=== PATIENT | male | born 1985 | race Caucasian/White ===

== ENCOUNTER 2021-05-22 05:26 | Emergency (ER) | payer BC, OTHER ==
[~2021-05-22] VITALS: Ht 182 cm; Wt 217.0 kg
--- NOTE | 2021-05-22 05:50 | ED Chest Pain ---
General Chief Complaint: Cardiac/General Problems Stated Complaint: CHEST PAIN Source: patient Exam Limitations: no limitations History of Present Illness Date Seen by Provider: May 22, 2021 Time Seen by Provider: 05:29 Initial Comments 35-year-old male with past medical history of hypertension, anxiety, depression coming in due to chest pain. Started yesterday, center of his chest, dull, and has been constant since then. Movement does not seem to change the pain. Laying down does not seem to change the pain. It is not worse with eating. Has never really had pain like this before. Denies any prior history of DVT or PE. Does have a strong family history of heart disease. He has been on phentermine for the past 2 months to lose weight and has lost 40 pounds. The goal with his physician is to be on this for 6 months in total. He does follow with his physician at least monthly. Is otherwise denying any cough, shortness of breath, fever, nausea, vomiting, diarrhea, weakness, numbness, abdominal pain, rash, or any other concerns. Allergies and Home Medications Allergies Coded Allergies: No Known Drug Allergies (Unverified , 05/22/21) Patient Home Medication List Home Medication List Reviewed: Yes Review of Systems Review of Systems Constitutional: No chills, No fever EENTM: No Blurred Vision Respiratory: Denies Cough, Denies Shortness of Air Cardiovascular: Chest Pain Gastrointestinal: Denies Abdominal Pain, Denies Diarrhea, Denies Nausea, Denies Vomiting Genitourinary: Denies Burning Musculoskeletal: no symptoms reported Skin: no symptoms reported Psychiatric/Neurological: No Symptoms Reported Endocrine: No Symptoms Reported Hematologic/Lymphatic: No Symptoms Reported All Other Systems Reviewed Negative Unless Noted: Yes Past Piuhbco-Iefdhs-Wpewps Hx Patient Social History Tobacco Use?: No Substance use?: No Alcohol Use?: Yes Alcohol Frequency: Once in a while Past Medical History Surgeries: No Physical Exam Vital Signs Vital Signs - First Documented 05/22/21 05:30 Temp 36.0 Pulse 63 Resp 20 B/P (MAP) 139/77 (97) Pulse Ox 97 O2 Delivery Room Air Capillary Refill : Height, Weight, BMI Height: '" Weight: lbs. oz. kg; BMI Method: General Appearance: No Apparent Distress, WD/WN HEENT: PERRL/EOMI, Normal ENT Inspection, Pharynx Normal Neck: Full Range of Motion, Normal Inspection, Non Tender, Supple Respiratory: Chest Non Tender, Lungs Clear, Normal Breath Sounds, No Accessory Muscle Use, No Respiratory Distress Cardiovascular: Regular Rate, Rhythm, No Edema, Normal Peripheral Pulses Gastrointestinal: Normal Bowel Sounds, Non Tender, Soft; No Distended, No Guarding Extremity: Normal Capillary Refill, Normal Inspection, Normal Range of Motion, Non Tender, No Calf Tenderness, No Pedal Edema Neurologic/Psychiatric: Alert, No Motor/Sensory Deficits, Normal Mood/Affect Skin: Normal Color, Warm/Dry Lymphatic: No Adenopathy Progress/Results/Core Measures Results/Orders Lab Results Laboratory Tests Test 05/22/21 05:45 Range/Units White Blood Count 6.3 4.3-11.0 10^3/uL Red Blood Count 5.08 4.30-5.52 10^6/uL Hemoglobin 13.8 13.3-17.7 g/dL Hematocrit 42 40-54 % Mean Corpuscular Volume 83 80-99 fL Mean Corpuscular Hemoglobin 27 25-34 pg Mean Corpuscular Hemoglobin Concent 33 32-36 g/dL Red Cell Distribution Width 15.4 H 10.0-14.5 % Platelet Count 198 130-400 10^3/uL Mean Platelet Volume 9.9 9.0-12.2 fL Immature Granulocyte % (Auto) 1 % Neutrophils (%) (Auto) 56 42-75 % Lymphocytes (%) (Auto) 23 12-44 % Monocytes (%) (Auto) 18 H 0-12 % Eosinophils (%) (Auto) 2 0-10 % Basophils (%) (Auto) 1 0-10 % Neutrophils # (Auto) 3.6 1.8-7.8 X 10^3 Lymphocytes # (Auto) 1.4 1.0-4.0 X 10^3 Monocytes # (Auto) 1.1 H 0.0-1.0 X 10^3 Eosinophils # (Auto) 0.1 0.0-0.3 10^3/uL Basophils # (Auto) 0.1 0.0-0.1 10^3/uL Immature Granulocyte # (Auto) 0.1 0.0-0.1 10^3/uL Prothrombin Time 13.5 12.2-14.7 SEC INR Comment 1.0 0.8-1.4 Activated Partial Thromboplast Time 29 24-35 SEC Sodium Level 135 135-145 MMOL/L Potassium Level 3.6 3.6-5.0 MMOL/L Chloride Level 99 98-107 MMOL/L Carbon Dioxide Level 24 21-32 MMOL/L Anion Gap 12 5-14 MMOL/L Blood Urea Nitrogen 19 H 7-18 MG/DL Creatinine 0.78 0.60-1.30 MG/DL Estimat Glomerular Filtration Rate 114 BUN/Creatinine Ratio 24 Glucose Level 100 70-105 MG/DL Calcium Level 8.8 8.5-10.1 MG/DL Corrected Calcium 9.0 8.5-10.1 MG/DL Magnesium Level 2.0 1.6-2.4 MG/DL Total Bilirubin 0.3 0.1-1.0 MG/DL Aspartate Amino Transf (AST/SGOT) 23 5-34 U/L Alanine Aminotransferase (ALT/SGPT) 31 0-55 U/L Alkaline Phosphatase 90 40-136 U/L Troponin I < 0.30 <0.30 NG/ML Total Protein 7.0 6.4-8.2 GM/DL Albumin 3.8 3.2-4.5 GM/DL My Orders Orders - CAITIE QUISPE MD Lidocaine 2% Viscous 15 Ml (Xylocaine Vi (05/22/21 06:00) Antacid Suspension (Mylanta Suspension (05/22/21 06:00) Ed Iv/Invasive Line Start (05/22/21 05:50) Cbc With Automated Diff (05/22/21 05:50) Magnesium (05/22/21 05:50) Chest 1 View Ap/Pa Only (05/22/21 05:50) Ekg Tracing (05/22/21 05:50) Comprehensive Metabolic Panel (05/22/21 05:50) Protime With Inr (05/22/21 05:50) Partial Thromboplastin Time (05/22/21 05:50) Monitor-Rhythm Ecg Trace Only (05/22/21 05:50) Aspirin Chewable Tablet (Baby Aspirin Ch (05/22/21 06:00) Troponin I Fs (05/22/21 05:50) Manual Differential (05/22/21 05:45) Medications Given in ED Current Medications Medications Dose Ordered Sig/Juan M Route Start Time Stop Time Status Last Admin Dose Admin Al Hydrox/Mg Hydrox/Simethicone 30 ml ONCE ONCE PO 05/22/21 06:00 05/22/21 06:01 DC 05/22/21 05:57 30 ML Aspirin 324 mg ONCE ONCE PO 05/22/21 06:00 05/22/21 06:01 DC 05/22/21 05:55 324 MG Lidocaine HCl 15 ml ONCE ONCE PO 05/22/21 06:00 05/22/21 06:01 DC 05/22/21 05:57 15 ML Vital Signs/I&O 05/22/21 05:30 Temp 36.0 Pulse 63 Resp 20 B/P (MAP) 139/77 (97) Pulse Ox 97 O2 Delivery Room Air Progress Progress Note : Progress Note 35-year-old male with above history coming in due to chest pain. ABCs were intact and vitals were stable on presentation. Differential for the chest pain includes but not limited to ACS, PE, pneumothorax, pneumonia, pericardial effusion, aortic dissection, esophageal rupture, or some other etiology. An IV was started with basic labs as well as cardiac biomarkers ordered. EKG and chest xray also ordered. He was given full dose aspirin given his strong family history of heart disease. EKG without any ischemic changes on my interpretation. Chest xray on my interpretation with no obvious infiltrate, no pleural effusion, normal cardiac silhouette, and no free air under the diaphragm. Labs essentially unremarkable including negative troponin. The patient is low risk for a PE per Tiro Criteria and is PERC negative. Highly unlikely they have a PE at this time. Overall I believe the patient is stable with close outpatient follow-up with cardiology. I recommended he hold his phentermine until discussing with the primary doctor that is prescribing it and they can have a conversation about the risk and benefits of weight loss versus strain on his heart. He was then discharged home in stable condition with strict return precautions. Initial ECG Impression Date: May 22, 2021 Initial ECG Impression Time: 05:29 Initial ECG Rate: 68 Initial ECG Rhythm: Normal Sinus Comment Narrow QRS, normal axis, no significant ST changes, T wave flattening in V2 and lead III with no prior EKG to compare to Diagnostic Imaging Diagonstic Imaging: Xray Plain Films/CT/US/NM/MRI: chest Comments [facility]. [place], [place] NAME: PRINCEANDREAS [facility] REC#: [id number] PT STATUS: REG ER : 1985 PHYSICIAN: CAITIE QUISPE MD ADMIT DATE: 05/22/21/ER FS Draft Date of Exam:05/22/21 CHEST 1 VIEW AP/PA ONLY HISTORY: Chest pain COMPARISON: None TECHNIQUE: Frontal view of the chest FINDINGS: Lung volumes are low. No consolidation is seen. There is no significant pleural effusion or pneumothorax seen. The cardiac silhouette is stable in size. IMPRESSION: 1. Low lung volumes with no acute pulmonary abnormality seen. Dictated on workstation # [id number] Dict: 05/22/2110 Trans: 05/22/21611 [facility] [id number] Interpreted by: WADE ARCHULETA MD Electronically signed by: Departure Impression Primary Impression: Chest pain Qualified Codes: R07.9 - Chest pain, unspecified Disposition: 01 HOME, SELF-CARE Condition: Stable Departure-Patient Inst. Referrals: CELY LEE MD FACP FAC CCDS NO,LOCAL PHYSICIAN (PCP) Primary Care Physician Patient Instructions: Chest Pain (DC) Add. Discharge Instructions: You were seen in the emergency department for chest pain. Your labs do not like you have had a heart attack as of right now. However, you are very high risk with your family history. I would like you to call the industrial paramedic (Dr. Lee's number is in this paperwork, he is in [place]) and schedule follow-up because they may want to a stress test. The phentermine you are on does put a lot of stress on your heart, but at this time the benefits may outweigh the risk, as losing weight would be beneficial for your heart. Please discuss with your primary doctor that you are being prescribed the phentermine from that you have been having chest pain and determine between yourselves if you would still like to take the phentermine. If you continue to have chest pain that is worsening or you have any other concerns then please come back to the ER Given that you are a little bit high risk, I would recommend you take a baby aspirin every day until following up with cardiology. Work/School Note: Work Release Form Date Seen in the Emergency Department: May 22, 2021 Return to Work: May 23, 2021 Restrictions: No Restrictions CAITIE QUISPE MD May 22, 2021 05:50
[2021-05-22] MEDS ORDERED: ANTACID SUSP 30 ML UDC (MYLANTA) PO ONE (06:00)
[2021-05-22] MEDS ORDERED: LIDOCAINE 2% VISCOUS 15 ML UDC PO ONE (06:00)
[2021-05-22] MEDS ORDERED: ASPIRIN 81 MG CHEW (CHILDREN'S ASA) PO ONE (06:00)
[2021-05-22 06:04] LABS: PROTHROMBIN TIME PATIENT 13.5 SEC (12.2-14.7)
[2021-05-22 06:08] LABS: HEMATOCRIT 42 % (40-54); HEMOGLOBIN 13.8 g/dL (13.3-17.7); MEAN CORPUSCULAR HEMOGLOBIN 27 pg (25-34); MEAN CORPUSCULAR VOLUME 83 fL (80-99); WHITE BLOOD COUNT 6.3 10^3/uL (4.3-11.0)
[2021-05-22 06:09] LABS: BASOPHILS # (AUTO) 0.1 10^3/uL (0.0-0.1); BASOPHILS % (AUTO) 1 % (0-10); EOSINOPHILS # (AUTO) 0.1 10^3/uL (0.0-0.3); EOSINOPHILS % (AUTO) 2 % (0-10); LYMPHOCYTES # (AUTO) 1.4 X 10^3 (1.0-4.0); LYMPHOCYTES % (AUTO) 23 % (12-44); MEAN CORPUSCULAR HGB CONC 33 g/dL (32-36); MEAN PLATELET VOLUME 9.9 fL (9.0-12.2); MONOCYTES # (AUTO) 1.1 X 10^3 (0.0-1.0); MONOCYTES % (AUTO) 18 % (0-12); NEUTROPHILS # (AUTO) 3.6 X 10^3 (1.8-7.8); NEUTROPHILS % (AUTO) 56 % (42-75); PLATELET COUNT 198 10^3/uL (130-400)
--- NOTE | 2021-05-22 06:12 | Diagnostic Imaging Report ---
HISTORY: Chest pain COMPARISON: None TECHNIQUE: Frontal view of the chest FINDINGS: Lung volumes are low. No consolidation is seen. There is no significant pleural effusion or pneumothorax seen. The cardiac silhouette is stable in size. IMPRESSION: 1. Low lung volumes with no acute pulmonary abnormality seen. Dictated by: Dictated on workstation # [id number]
[2021-05-22 06:20] LABS: ALBUMIN 3.8 GM/DL (3.2-4.5); BILIRUBIN,TOTAL 0.3 MG/DL (0.1-1.0); CALCIUM 8.8 MG/DL (8.5-10.1); CREATININE SERUM 0.78 MG/DL (0.60-1.30); POTASSIUM 3.6 MMOL/L (3.6-5.0)
[2021-05-22 06:30] LABS: EOSINOPHILS % (MANUAL) 1 %; LYMPHOCYTES % (MANUAL) 26 %; MONOCYTES % (MANUAL) 10 %; NEUTROPHILS % (MANUAL) 59 %
[2021-05-22 06:31] LABS: PLATELET ESTIMATE NORM; RBC MORPH NORM; REACTIVE LYMPHOCYTES 4 %
[2021-05-22 06:35] VITALS: BP 132/74
== END 2021-05-22 06:35 | disposition home or self-care (01) ==
LOC: ER FS 05:31
DX: R07.9 Chest pain, unspecified (principal); I10 Essential (primary) hypertension
CPT/HCPCS: 36415; 71045; 80053; 83735; 84484; 85007; 85027; 85610; 85730; 93005

== ENCOUNTER 2022-02-20 16:11 | Observation (INO) | payer BC ==
[~2022-02-20] VITALS: Ht 182.9 cm; Wt 226.8 kg
[2022-02-20 16:39] LABS: BASOPHILS % (AUTO) 0 % (0-10); EOSINOPHILS # (AUTO) 0.3 10^3/uL (0.0-0.3); EOSINOPHILS % (AUTO) 3 % (0-10); HEMATOCRIT 41 % (40-54); HEMOGLOBIN 13.5 g/dL (13.3-17.7); LYMPHOCYTES % (AUTO) 20 % (12-44); MEAN CORPUSCULAR HEMOGLOBIN 28 pg (25-34); MEAN CORPUSCULAR HGB CONC 33 g/dL (32-36); MEAN CORPUSCULAR VOLUME 83 fL (80-99); MEAN PLATELET VOLUME 9.8 fL (9.0-12.2); MONOCYTES # (AUTO) 0.8 10^3/uL (0.0-1.0); MONOCYTES % (AUTO) 8 % (0-12); NEUTROPHILS % (AUTO) 68 % (42-75); PLATELET COUNT 205 10^3/uL (130-400); WHITE BLOOD COUNT 10.2 10^3/uL (4.3-11.0)
--- NOTE | 2022-02-20 16:47 | Diagnostic Imaging Report ---
EXAMINATION: Chest 1 view HISTORY: Chest pain COMPARISON: 05/22/2021. FINDINGS: Heart size and pulmonary vasculature are normal. Low lung volumes without consolidation, pleural effusion, or pneumothorax. The osseous structures are intact. IMPRESSION: 1. No acute radiographic abnormality in the chest. Dictated by: Dictated on workstation # [id number]
--- NOTE | 2022-02-20 16:48 | ED Cardiac General ---
History of Present Illness General Chief Complaint: Chest Pain Stated Complaint: CP Source: patient Exam Limitations: no limitations History of Present Illness Date Seen by Provider: Feb 20, 2022 Time Seen by Provider: 16:25 Initial Comments Patient is a 36 yo male who presents with intermittent substernal chest pain radiating R shoulder who presents for the past 2 days. Symptoms occur at rest or at night and last 15 to 20 minutes. Patient is unable to reproduce symptoms with exertion, deep breathing or arm movement. Denies nausea, shortness of breath sweats abdominal pain or other cardiac equivalent. Patient is a non- smoker but has history of high blood pressure and strong family history of cor onary disease. Patient's brother of heart attack at age 42 and mother of heart disease under the age of 60. He has 1 prior episode and was evaluated in the emergency department approximately 1 year ago for chest pain, which was deemed to be not heart related. The patient has not had any outpatient cardiac testing. He does report increased stress due to financial responsibilities related to an ongoing personal project. 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 Allergies and Home Medications Allergies Coded Allergies: No Known Drug Allergies (Unverified , 05/22/21) Patient Home Medication List Home Medication List Reviewed: Yes Review of Systems Review of Systems Constitutional: see HPI EENTM: See HPI Respiratory: See HPI Cardiovascular: See HPI Gastrointestinal: See HPI Genitourinary: See HPI Musculoskeletal: see HPI Skin: see HPI Psychiatric/Neurological: See HPI Endocrine: See HPI Hematologic/Lymphatic: See HPI All Other Systems Reviewed Negative Unless Noted: No Past Vttiyil-Klrbxv-Bufkgw Hx Patient Social History Tobacco Use?: No Use of E-Cig and/or Vaping dev: No Substance use?: No Alcohol Use?: No Pt feels they are or have been: No Immunizations Up To Date First/Initial COVID19 Vaccinat: denies Past Medical History Surgeries: No Physical Exam Vital Signs Vital Signs - First Documented 02/20/22 16:20 Temp 36.2 Pulse 79 Resp 16 B/P (MAP) 147/76 (99) Pulse Ox 95 Capillary Refill : Less Than 3 Seconds Height, Weight, BMI Height: '" Weight: lbs. oz. kg; 65.00 BMI Method: General Appearance: No Apparent Distress, WD/WN HEENT: PERRL/EOMI Neck: Non Tender Respiratory: Lungs Clear Cardiovascular: Regular Rate, Rhythm Gastrointestinal: Non Tender, Soft Neurologic/Psychiatric: Alert, Oriented x3 Focused Exam Sepsis Stage: Ruled Out Progress/Results/Core Measures Results/Orders Lab Results Laboratory Tests Test 02/20/22 16:25 Range/Units White Blood Count 10.2 4.3-11.0 10^3/uL Red Blood Count 4.90 4.30-5.52 10^6/uL Hemoglobin 13.5 13.3-17.7 g/dL Hematocrit 41 40-54 % Mean Corpuscular Volume 83 80-99 fL Mean Corpuscular Hemoglobin 28 25-34 pg Mean Corpuscular Hemoglobin Concent 33 32-36 g/dL Red Cell Distribution Width 15.1 H 10.0-14.5 % Platelet Count 205 130-400 10^3/uL Mean Platelet Volume 9.8 9.0-12.2 fL Immature Granulocyte % (Auto) 1 % Neutrophils (%) (Auto) 68 42-75 % Lymphocytes (%) (Auto) 20 12-44 % Monocytes (%) (Auto) 8 0-12 % Eosinophils (%) (Auto) 3 0-10 % Basophils (%) (Auto) 0 0-10 % Neutrophils # (Auto) 7.0 1.8-7.8 10^3/uL Lymphocytes # (Auto) 2.0 1.0-4.0 10^3/uL Monocytes # (Auto) 0.8 0.0-1.0 10^3/uL Eosinophils # (Auto) 0.3 0.0-0.3 10^3/uL Basophils # (Auto) 0.0 0.0-0.1 10^3/uL Immature Granulocyte # (Auto) 0.1 0.0-0.1 10^3/uL Sodium Level 140 135-145 MMOL/L Potassium Level 3.5 L 3.6-5.0 MMOL/L Chloride Level 103 98-107 MMOL/L Carbon Dioxide Level 26 21-32 MMOL/L Anion Gap 11 5-14 MMOL/L Blood Urea Nitrogen 19 H 7-18 MG/DL Creatinine 0.81 0.60-1.30 MG/DL Estimat Glomerular Filtration Rate 118 BUN/Creatinine Ratio 23 Glucose Level 100 70-105 MG/DL Calcium Level 9.3 8.5-10.1 MG/DL Corrected Calcium 9.1 8.5-10.1 MG/DL Total Bilirubin 0.3 0.1-1.0 MG/DL Aspartate Amino Transf (AST/SGOT) 19 5-34 U/L Alanine Aminotransferase (ALT/SGPT) 25 0-55 U/L Alkaline Phosphatase 78 40-136 U/L Troponin I < 0.30 <0.30 NG/ML Total Protein 7.1 6.4-8.2 GM/DL Albumin 4.2 3.2-4.5 GM/DL My Orders Orders - PEGGY SILVERIO DO Cbc With Automated Diff (02/20/22 16:31) Comprehensive Metabolic Panel (02/20/22 16:31) Troponin I Fs (02/20/22 16:31) Chest 1 View Ap/Pa Only (02/20/22 16:31) Ekg Tracing (02/20/22 16:31) Vital Signs/I&O 02/20/22 16:20 Temp 36.2 Pulse 79 Resp 16 B/P (MAP) 147/76 (99) Pulse Ox 95 Departure Communication (Admissions) EKG: nsr, no acute ST T wave changes. CXR: NAD Patient with atypical chest pain with moderate risk factors. EKG and trop are negative. He verbalizes understanding. Given patient's family hx it is highly recommended that the patient have cardiac chest pain. Risk vs benefits discussed in details. Patient declines admission and requests dc home. Impression Primary Impression: Chest pain Disposition: 01 HOME, SELF-CARE Condition: Stable Departure-Patient Inst. Decision time for Depature: 18:10 Referrals: MARY BLOOD MD (PCP) Primary Care Physician ATYO WOODS APRN (Family) Primary Care Physician Patient Instructions: Chest Pain Add. Discharge Instructions: You were evaluated in the emergency department for chest pain. EKG lab and imaging studies were performed and are nondiagnostic. The exact cause of your symptoms has not been determined but given your family history it is highly advisable that you obtain a cardiac stress testing soon as possible. Please contact your PCP and arrange for outpatient cardiac testing. In the meantime if you change your mind regarding hospital admission or if he develop new or concerning symptoms, return to the emergency department. All discharge instructions reviewed with patient and/or family. Voiced understanding. PEGGY SILVERIO DO Feb 20, 2022 16:48
[2022-02-20 17:51] LABS: ALANINE AMINOTRANSFERASE 25 U/L (0-55); ALKALINE PHOSPHATASE 78 U/L (40-136); BILIRUBIN,TOTAL 0.3 MG/DL (0.1-1.0); BUN/CREATININE RATIO 23; CALCIUM 9.3 MG/DL (8.5-10.1); CARBON DIOXIDE 26 MMOL/L (21-32); CHLORIDE 103 MMOL/L (98-107); CREATININE SERUM 0.81 MG/DL (0.60-1.30); GFR ESTIMATED 118; GLUCOSE 100 MG/DL (70-105); POTASSIUM 3.5 MMOL/L (3.6-5.0); SODIUM 140 MMOL/L (135-145); TOTAL PROTEIN 7.1 GM/DL (6.4-8.2)
[2022-02-20 17:52] LABS: ALBUMIN 4.2 GM/DL (3.2-4.5)
[2022-02-20] MEDS ORDERED: ASPIRIN 81 MG CHEW (CHILDREN'S ASA) PO ONE (19:00)
[2022-02-20] MEDS ORDERED: NITROGLYCERIN 2% OINT 1 GM UNIT DOSE PACKET TOP ONE (19:00)
[2022-02-20] MEDS ORDERED: meTOproloL SUCCINATE 50 MG (TOPROL XL) TAB PO SCH (19:00)
[2022-02-20] MEDS ORDERED: ENOXAPARIN 40 MG/0.4 ML (LOVENOX) SYR SQ SCH (19:00)
[2022-02-20 21:15] VITALS: BP 110/64
[2022-02-20] MEDS ORDERED: diphenhydrAMINE 25 MG TAB (BENADRYL) PO PRN (21:15)
[2022-02-20] MEDS ORDERED: ANTACID SUSP 30 ML UDC (MYLANTA) PO PRN (21:15)
[2022-02-20] MEDS ORDERED: diphenhydrAMINE 50 MG/ML INJ (BENADRYL) IVP PRN (21:15)
[2022-02-20] MEDS ORDERED: BISACODYL 10 MG SUPP (DULCOLAX) PR PRN (21:15)
[2022-02-20] MEDS ORDERED: ACETAMINOPHEN 325 MG TABLET PO PRN (21:15)
[2022-02-20] MEDS ORDERED: MELATONIN 3 MG TABLET PO PRN (21:15)
[2022-02-20] MEDS ORDERED: polyethylene glycoL POWDER 17 GM (MIRALAX) PACK PO PRN (21:15)
[2022-02-20] MEDS ORDERED: ONDANSETRON 4 MG/2 ML (SDV) Z0FRAN IV PRN (21:15)
[2022-02-20] MEDS ORDERED: ONDANSETRON 4 MG (ZOFRAN) ORAL DISSOLVE TAB PO PRN (21:15)
[2022-02-21 00:07] VITALS: BP 115/74
[2022-02-21 04:14] VITALS: BP 112/63
[2022-02-21 07:50] VITALS: BP 110/75
--- NOTE | 2022-02-21 08:30 | Consultation-Cardiology ---
HPI-Cardiology Cardiology Consultation: Date of Consultation 02/21/22 Time Seen by a Provider: 08:10 Date of Admission 02-20-22 Attending Physician Chase Veliz MD Admitting Physician Admitting Physician: Yodit Portillo MD Attending Physician: Yodit Portillo MD Consulting Physician Naseem Lee MD HPI: Chief Complaint: Chest pain Mr. Linares is a 36 yr old male admitted to 415 from the [facility] ED with c/o CP. He reports on Friday night when he was getting ready to go to bed he developed mid-sternal chest pressure which radiated to his right shoulder. He describes the right shoulder pain as a cramping, burning sensation. He reports the discomfort would come and go in intensity. He states it lasted for approx 30 minutes. He denies any n/v or diaphoresis. No c/o dyspnea. He reports he went to work on Friday and the pressure in his chest returned with right arm pain that would come and go all day long while he was at work. He reports it lasted for only a few minutes at a time. He reports the discomfort was not in relation to any activity and would come on even at rest. He states he continued to have the same symptoms on Friday prompting him to come to the ED. He reports he has not had any discomfort over night or this morning. He continues to deny any other assoc symptoms. His PCP is ROHIT Medina at Dr. Yadav office in [facility]. He reports he was recently started on a new "weight loss" medication last week. He has chronic bilat LE swelling which is least in the morning and worse at the end of the day. He reports he has sleep apnea and has been compliant with his CPAP. He is currently pain free. Review of Systems-Cardiology Review of Systems Constitutional: No chills, No fever, No lightheadedness, No malaise Eyes: No vision change Ears/Nose/Throat: No epistaxis, No recent hearing loss Respiratory: As described under HPI Cardiovascular: As described under HPI Genitourinary: No hematuria Musculoskeletal: no symptoms reported Skin: No rash on exposed areas, No ulcerations on exposed areas Psychiatric/Neurological: anxiety, depression; No seizure, No focal weakness, No syncope Hematologic: No bleeding abnormalities All Other Systems Reviewed Negative Unless Noted: No UQR-Aybrvz-Tlvwey Hx Patient Social History Smoking Status: Never a Smoker Have you traveled recently?: No Alcohol Use?: Yes Pt feels they are or have been: No Past Medical History PMH As described under Assessment. Family Medical History Family Medical History: He reports his mother has a h/o CAD, VA, stenting. She was dx with CAD in her early 50's. His father has CHF. He has a brother who passed from an VA at age 42. He has an uncle who passed from an VA at age 32. Allergies and Home Medications Allergies Coded Allergies: No Known Drug Allergies (Unverified , 05/22/21) Patient Home Medication List Allopurinol (Allopurinol) 300 Mg Tablet, 300 MG PO DAILY, (Reported) Entered as Reported by: CHARLIE WILSON on 02/21/221104 Last Action: Reviewed Aspirin (Children's Aspirin) 81 Mg Tab.chew, 81 MG PO DAILY Prescribed by: ANJU TUTTLE on 02/21/22 1341 Citalopram Hydrobromide (Citalopram HBr) 20 Mg Tablet, 20 MG PO DAILY, (R eported) Entered as Reported by: CHARLIE WILSON on 02/21/221104 Last Action: Reviewed Cyclobenzaprine HCl (Cyclobenzaprine HCl) 5 Mg Tablet, 5 MG PO TID PRN for MUSCLE SPASMS, (Reported) Entered as Reported by: CHARLIE WILSON on 02/21/221104 Last Action: Reviewed Ibuprofen (Ibuprofen) 200 Mg Tablet, 800 MG PO Q8H PRN for PAIN-MILD (1-4), (Reported) Entered as Reported by: CHARLIE WILSON on 02/21/221104 Last Action: Reviewed Metoprolol Succinate (Metoprolol Succinate) 50 Mg Tab.er.24h, 50 MG PO ONCE Prescribed by: ANJU TUTTLE on 02/21/22 1341 Naltrexone HCl/Bupropion HCl (Contrave ER 8-90 mg Tablet) 8 Mg-90 Mg Tablet.er, 1 EACH PO BID, (Reported) Entered as Reported by: CHARLIE WILSON on 02/21/221104 Last Action: Reviewed Physical Exam-Cardiology Physical Exam Vital Signs/I&O Capillary Refill : Less Than 3 Seconds Constitutional: AAO x 3, well-developed, well-nourished HEENT: PERRL, hearing is well preserved, oral hygience is good Neck: No carotid bruit; carotid pulses are 2 + bilaterally Respiratory: No accessory muscle use, No respiratory distress; chest expansion is symmetric, chest is bilaterally symmetric, other (good air entry) Cardiovascular: regular rate-rhythm; No JVD; S1 and S2 Gastrointestinal: No tender; soft, round, audible bowel sounds Extremities: no lower extremity edema bilateral Neurologic/Psychiatric: grossly intact (moves all extremities) Skin: No rash on exposed areas, No ulcerations on exposed areas Data Review Labs Radiology NAME: ANDREAS LINARES [facility] REC#: [id number] PT STATUS: REG ER : 1985 PHYSICIAN: PEGGY SILVERIO DO ADMIT DATE: 02/20/22/ER FS Signed Date of Exam:02/20/22 CHEST 1 VIEW AP/PA ONLY EXAMINATION: Chest 1 view HISTORY: Chest pain COMPARISON: 05/22/2021. FINDINGS: Heart size and pulmonary vasculature are normal. Low lung volumes without consolidation, pleural effusion, or pneumothorax. The osseous structures are intact. IMPRESSION: 1. No acute radiographic abnormality in the chest. Dictated by: Dictated on workstation # [id number] Dict: 02/20/22 1643 Trans: 02/20/22 1645 [id number] Interpreted by: ESME BLANCAS DO Electronically signed by: ESME BLANCAS DO 02/20/22 1645 ECG Impression ECG Initial ECG Rhythm: S.Nate A/P-Cardiology Assessment/Admission Diagnosis Chest pain - undetermined etiology - no evidence of ACS HTN Morbidly obese FIDEL - CPAP tx Anxiety/depression Lower extremity swelling - likely secondary to venous insufficiency Hypokalemia - likely secondary to chronic diuretic tx (HCTZ) Family h/o CAD - Mother, father, brother Discussion and Recomendations Chest pain of undetermined etiology - no evidence of ACS, but has symptoms suggestive of stable/unstable angina - consider cardiac cath - Echocardiogram today to eval structure and function HTN - continue BB Hypokalemia - likely secondary to chronic diuretic use - stop HCTZ - replace electrolytes Advised efforts at weight loss - reports he is taking Concerta Monitor lab closely Replace electrolytes as indicated Further recs will be based on his hospital course We would like to thank medical services for this consult Clinical Quality Measures AMI/AHF: ASA po Prior to arrival: ANJU Casanova Feb 21, 2022 08:30
[2022-02-21] MEDS ORDERED: ENOXAPARIN 60 MG/0.6 ML (LOVENOX) SYR SQ SCH (09:00)
[2022-02-21] MEDS ORDERED: KCL 20 MEQ TAB (K-DUR) PO NR (09:00)
[2022-02-21] MEDS ORDERED: DOCUSATE SODIUM 100 MG (COLACE) CAP PO SCH (09:00)
[2022-02-21] MEDS ORDERED: ASPIRIN 81 MG CHEW (CHILDREN'S ASA) PO SCH (09:00)
[2022-02-21] MEDS ORDERED: CLOPIDOGREL 75 MG (PLAVIX) TABLET PO SCH (09:00)
[2022-02-21] MEDS ORDERED: ALLO300T2 PO (11:05)
[2022-02-21] MEDS ORDERED: IBUP-2473 PO (11:05)
[2022-02-21] MEDS ORDERED: HYDR50TA6 PO (11:05)
[2022-02-21] MEDS ORDERED: CYCL5TAB PO (11:05)
[2022-02-21] MEDS ORDERED: LISI10TA25 PO (11:05)
[2022-02-21] MEDS ORDERED: CITA20TA9 PO (11:05)
[2022-02-21] MEDS ORDERED: NALT1TAB PO (11:05)
[2022-02-21 11:39] VITALS: BP 114/76
[2022-02-21] MEDS ORDERED: DOBUTamine DRIP 250 ML IV ONE (12:21)
[2022-02-21] MEDS ORDERED: METO50TA7 PO (13:41)
[2022-02-21] MEDS ORDERED: ASPI81TA64 PO (13:41)
--- NOTE | 2022-02-21 15:22 | Short Stay Summary-Hospitalist ---
History of Present Illness HPI/Chief Complaint Paulie Linares is a 36 year old male with PMH HTN, gout, depression, super super obesity, who presented with chest pain. He reports substernal chest pressure with radiation to his right arm. He denies any associated shortness of breath, nausea/vomiting, or diaphoresis. He denies any alleviating or aggravating factors. Upon my exam, his chest pain has resolved. He is otherwise in his normal state of health. He does have a strong family history of early coronary artery disease. Source: patient Exam Limitations: no limitations Date Seen 02/21/22 Time Seen by a Provider: 10:40 Attending Physician Chase Veliz MD PCP Admitting Physician: Caden Portillo MD Attending Physician: Caden Portillo MD Referring Physician Date of Admission Feb 20, 2022 at 21:00 Home Medications & Allergies Home Medications Reviewed patient Home Medication Reconciliation performed by pharmacy medication reconciliations management services technician and/or nursing. Patients Allergies have been reviewed. Allergies Allergies Coded Allergies No Known Drug Allergies ([id number]/30/21) Past Hidwyxb-Dmcvzm-Imdblh Hx Patient Social History Tobacco Use?: No Smoking Status: Never a Smoker Smokeless Tobacco Frequency: Never a User Use of E-Cig and/or Vaping dev: No Substance use?: No Alcohol Use?: Yes Alcohol Frequency: Couple times a week Pt feels they are or have been: No Immunizations Up To Date First/Initial COVID19 Vaccinat: denies Current Status Advance Directives: No Communicates: Verbally Primary Language: Israeli Preferred Spoken Language: Israeli Is interpretation needed?: No Implanted or Applied Medical D: None Family Medical History CAD Under 55 Years Old Review of Systems Constitutional: no symptoms reported EENTM: no symptoms reported Respiratory: no symptoms reported Cardiovascular: chest pain Gastrointestinal: no symptoms reported Genitourinary: no symptoms reported Physical Exam Physical Exam Vital Signs Vital Signs - First Documented 02/20/22 02/20/22 16:20 19:00 Temp 36.2 Pulse 79 Resp 16 B/P (MAP) 147/76 (99) Pulse Ox 95 O2 Delivery Room Air Capillary Refill : Less Than 3 Seconds Height, Weight, BMI Height: '" Weight: lbs. oz. kg; 67.79 BMI Method: General Appearance: No Apparent Distress, Obese HEENT: PERRL/EOMI, Pharynx Normal Neck: Normal Inspection, Supple Respiratory: Lungs Clear, Normal Breath Sounds, No Respiratory Distress Cardiovascular: Regular Rate, Rhythm, No Murmur Gastrointestinal: Normal Bowel Sounds, Non Tender, Soft Extremity: Normal Inspection, Non Tender, No Pedal Edema Neurologic/Psychiatric: Alert, Oriented x3, Normal Mood/Affect Skin: Normal Color, Warm/Dry Results Results/Procedures Labs Laboratory Tests 02/20/22 16:25 Patient resulted labs reviewed. Imaging: Reviewed Imaging Report Short Stay Diagnosis Discharge Diagnosis-Short Stay Admission Diagnosis Chest pain Final Discharge Diagnosis Chest pain Conclusion Plan Chest pain Cardiology consulted Troponins and EKG normal Stress test negative Started on ASA and Metoprolol Follow up with Cardiology in clinic HTN Super super obesity Gout Depression Diagnosis/Problems Diagnosis/Problems (1) Chest pain Status: Acute Qualifiers: Qualified Codes: R07.89 - Other chest pain (2) HTN (hypertension) Status: Chronic (3) Super-super obese Status: Chronic (4) Family history of early CAD Clinical Quality Measures AMI/AHF: ASA po Prior to arrival: CADEN Michelle MD Feb 21, 2022 15:22
[2022-02-21 15:52] VITALS: BP 104/68
[2022-02-21 16:40] VITALS: BP 104/68
--- NOTE | 2022-02-21 16:53 | Consultation-Cardiology ---
HPI-Cardiology Cardiology Consultation: Date of Consultation 02/21/22 Time Seen by a Provider: 09:30 Date of Admission Attending Physician Chase Veliz MD Admitting Physician Admitting Physician: Yodit Portillo MD Attending Physician: Yodit Portillo MD Consulting Physician CELY BERG MD, MA, FACP, FAC, [facility] HPI: Chief Complaint: Chest pain Mr. Linares is a 36 yr old male admitted to [facility] from the [facility] ED with c/o CP. He reports on Friday night when he was getting ready to go to bed he developed mid-sternal chest pressure which radiated to his right shoulder. He describes the right shoulder pain as a cramping, burning sensation. He reports the discomfort would come and go in intensity. He states it lasted for approx 30 minutes. He denies any n/v or diaphoresis. No c/o dyspnea. He reports he went to work on Friday and the pressure in his chest returned with right arm pain that would come and go all day long while he was at work. He reports it lasted for only a few minutes at a time. He reports the discomfort was not in relation to any activity and would come on even at rest. He states he continued to have the same symptoms on Friday prompting him to come to the ED. He repo rts he has not had any discomfort over night or this morning. He continues to deny any other assoc symptoms. His PCP is ROHIT Medina at Dr. Yadav office in [facility]. He reports he was recently started on a new "weight loss" medication last week. He has chronic bilat LE swelling which is least in the morning and worse at the end of the day. He reports he has sleep apnea and has been compliant with his CPAP. He is currently pain free. Review of Systems-Cardiology Review of Systems Constitutional: No chills, No fever, No lightheadedness, No malaise Eyes: No vision change Ears/Nose/Throat: No epistaxis, No recent hearing loss Respiratory: As described under HPI Cardiovascular: As described under HPI Genitourinary: No hematuria Musculoskeletal: no symptoms reported Skin: No rash on exposed areas, No ulcerations on exposed areas Psychiatric/Neurological: anxiety, depression; No seizure, No focal weakness, No syncope Hematologic: No bleeding abnormalities All Other Systems Reviewed Negative Unless Noted: No FTS-Ufuwzx-Lhricj Hx Patient Social History Smoking Status: Never a Smoker Have you traveled recently?: No Alcohol Use?: Yes Pt feels they are or have been: No Past Medical History PMH As described under Assessment. Family Medical History Family Medical History: He reports his mother has a h/o CAD, [place], stenting. She was dx with CAD in her early 50's. His father has CHF. He has a brother who passed from an IL at age 42. He has an uncle who passed from an IL at age 32. Family History: Early CAD Allergies and Home Medications Allergies Coded Allergies: No Known Drug Allergies (Unverified , 05/22/21) Patient Home Medication List Home Medication List Reviewed: Yes Allopurinol (Allopurinol) 300 Mg Tablet, 300 MG PO DAILY, (Reported) Entered as Reported by: CHARLIE WILSON on 02/21/221104 Last Action: Reviewed Aspirin (Children's Aspirin) 81 Mg Tab.chew, 81 MG PO DAILY Prescribed by: ANJU TUTTLE on 02/21/22 1341 Citalopram Hydrobromide (Citalopram HBr) 20 Mg Tablet, 20 MG PO DAILY, (Reported) Entered as Reported by: CHARLIE WILSON on 02/21/221104 Last Action: Reviewed Cyclobenzaprine HCl (Cyclobenzaprine HCl) 5 Mg Tablet, 5 MG PO TID PRN for MUSCLE SPASMS, (Reported) Entered as Reported by: CHARLIE WILSON on 02/21/221104 Last Action: Reviewed Ibuprofen (Ibuprofen) 200 Mg Tablet, 800 MG PO Q8H PRN for PAIN-MILD (1-4), (Reported) Entered as Reported by: CHARLIE WILSON on 02/21/221104 Last Action: Reviewed Metoprolol Succinate (Metoprolol Succinate) 50 Mg Tab.er.24h, 50 MG PO ONCE Prescribed by: ANJU TUTTLE on 02/21/22 1341 Naltrexone HCl/Bupropion HCl (Contrave ER 8-90 mg Tablet) 8 Mg-90 Mg Tablet.er, 1 EACH PO BID, (Reported) Entered as Reported by: CHARLIE WILSON on 02/21/221104 Last Action: Reviewed Discontinued Medications Hydrochlorothiazide (Hydrochlorothiazide) 50 Mg Tablet, 50 MG PO DAILY, (Rep orted) Entered as Reported by: CHARLIE WILSON on 02/21/221104 Last Action: Reviewed Lisinopril (Lisinopril) 10 Mg Tablet, 10 MG PO DAILY, (Reported) Entered as Reported by: CHARLIE WILSON on 02/21/221104 Last Action: Reviewed Physical Exam-Cardiology Physical Exam Vital Signs/I&O 02/21/22 02/21/22 02/21/22 02/21/22 07:16 07:50 08:00 11:39 Temp 35.6 35.6 Pulse 58 63 51 Resp 18 18 B/P (MAP) 110/75 (87) 114/76 (89) Pulse Ox 98 98 98 O2 Delivery Room Air Room Air Room Air 02/21/22 02/21/22 15:52 16:40 Temp 36.3 36.3 Pulse 66 66 Resp 18 18 B/P (MAP) 104/68 (80) 104/68 Pulse Ox 97 97 O2 Delivery Room Air Room Air 02/21/22 00:00 Intake Total 100 ml Balance 100 ml Capillary Refill : Less Than 3 Seconds Constitutional: AAO x 3, well-developed, well-nourished HEENT: PERRL, hearing is well preserved, oral hygience is good Neck: No carotid bruit; carotid pulses are 2 + bilaterally Respiratory: No accessory muscle use, No respiratory distress; chest expansion is symmetric, chest is bilaterally symmetric, other (good air entry) Cardiovascular: regular rate-rhythm; No JVD; S1 and S2 Gastrointestinal: No tender; soft, round, audible bowel sounds Extremities: no lower extremity edema bilateral Neurologic/Psychiatric: other (moves all limbs equally) Skin: No rash on exposed areas, No ulcerations on exposed areas Data Review Labs Laboratory Tests 02/20/22 23:50: Troponin I < 0.028 02/21/22 05:29: Troponin I < 0.028 Laboratory Tests 02/20/22 16:25 A/P-Cardiology Assessment/Admission Diagnosis Chest pain - undetermined etiology - no evidence of ACS - echo on 02/21/22: LVEF 50-55%, no RWMA, no significant valvular heart disease - dobutamine echo on 02/21/22: No evidence of myocardial infarction or dobutamine- induced myocardial ischemia (to 40 mcg/kg/min of dobutamine and to 65% of max predicted heart rate) HTN Morbidly obese FIDEL - CPAP tx Anxiety/depression Lower extremity swelling - likely secondary to venous insufficiency Hypokalemia - likely secondary to chronic diuretic tx (HCTZ) Family h/o CAD - Mother, father, brother Discussion and Recomendations * No evidence of ACS * Risk factor mod discussed * Advised off diuretic, given elec imbalance on diuretics * Advised off lisinopril to provide room for beta-alfonso. B-alfonso may be the better option for him, given his fam h/o early CAD and SCD * Outpatient f/u advised Clinical Quality Measures AMI/AHF: ASA po Prior to arrival: CELY Teixeira MD FACP FAC CCDS Feb 21, 2022 16:53
== END 2022-02-21 15:11 | disposition home or self-care (01) ==
LOC: EDUNIT# 16:11 → ER FS 16:12 → UNDOADMOB 21:00 → 4TH 21:00 → UNDODISOB 02-21 15:11
PROVIDERS: ADMIT Internal Medicine; ATTEND Internal Medicine
DX: R07.89 Other chest pain (principal); I10 Essential (primary) hypertension; E66.01 Morbid (severe) obesity due to excess calories; M10.9 Gout, unspecified; F32.A Depression, unspecified; Z68.44 Body mass index [BMI] 60.0-69.9, adult; Z79.899 Other long term (current) drug therapy; G47.33 Obstructive sleep apnea (adult) (pediatric); E87.6 Hypokalemia; R60.0 Localized edema
CPT/HCPCS: 36415; 71045; 80053; 84484 ×3; 85025; 85379; 93005 ×2; 93306; 96372; 99284; C8930; G0378

== ENCOUNTER → 2022-09-24 | Outpatient (CLI) | payer BC ==
[~2022-09-24] MED LIST: ALLO300T2 PO; ASPI81TA64 PO; CITA20TA9 PO; CYCL5TAB PO; HYDR50TA6 PO; IBUP-2473 PO; LISI10TA25 PO; METO50TA7 PO; NALT1TAB PO
--- NOTE | 2022-09-24 12:41 | Diagnostic Imaging Report ---
INDICATION: Ankle pain. COMPARISON: None. FINDINGS: Three views of the right ankle were obtained. There is no acute fracture or dislocation. No focal osseous lesions are seen. The surrounding soft tissue structures are unremarkable. There are no radiopaque foreign bodies. IMPRESSION: 1. No acute fracture or dislocation in the right ankle. Dictated by: Dictated on workstation # [id number]
== END ==
LOC: RAD FS 11:10
PROVIDERS: ATTEND Nurse Practitioner
DX: M25.571 Pain in right ankle and joints of right foot (principal)
CPT/HCPCS: 73610